=== PATIENT | female | born 1960 | race Caucasian/White ===

== ENCOUNTER → 2016-11-01 | Outpatient (CLI) | payer BC ==
[~2016-11-01] MED LIST: CRF1 PO; GAVISCON; LEVO75TA36 PO; PRLSR20 PO
--- NOTE | 2016-11-01 16:39 | MAMMOGRAPHY REPORT ---
BILATERAL DIGITAL SCREENING MAMMOGRAM TOMOSYNTHESIS WITH CAD: 11/01/2016 CLINICAL HISTORY: Routine screening. Patient has no complaints. TECHNIQUE: Breast tomosynthesis in addition to standard 2D mammography was performed. Current study was also evaluated with a Computer Aided Detection (CAD) system. COMPARISON: Comparison is made to exams dated: 10/18/2015 mammogram, 03/13/2013 mammogram, 05/20/2014 mammogram, 03/05/2012 mammogram, 01/11/2011 mammogram, and 12/27/2009 mammogram - [facility]. BREAST COMPOSITION: There are scattered areas of fibroglandular density in both breasts. FINDINGS: There is an area of questionable architectural distortion seen within the right upper oute r quadrant on the tomosynthesis images only, for which spot compression tomosynthesis views and poss ible breast ultrasound are recommended for further evaluation. The remainder of both breasts are stable compared to prior exams, without suspicious masses, calcifi cations, or areas of architectural distortion noted. Oval circumscribed benign-appearing 13 mm mass seen within the left upper outer quadrant appear stable compared to prior exams including the 2013 exam. IMPRESSION: ACR BI-RADS CATEGORY 0: INCOMPLETE EVALUATION: NEED ADDITIONAL IMAGING EVALUATION Possible architectural distortion in the right upper outer quadrant, for which additional imaging ev aluation is recommended. The patient will be called to schedule an appointment. Approximately 10% of breast cancers are not detected with mammography. A negative mammographic repor t should not delay biopsy if a clinically suggestive mass is present. Toña Soto M.D. ah/:11/01/2016 15:31:49 Dynamometer Repairer: Cici SPEARS(Dorothy)(M), [facility] letter sent: Addl Imaging 0 BI-RADS Code: ACR BI-RADS Category 0: Incomplete Evaluation: Need Additional Imaging Evaluation
== END | disposition home or self-care (01) ==
LOC: C.MAMM 13:53
PROVIDERS: ATTEND Family Medicine
DX: Z12.31 Encounter for screening mammogram for malignant neoplasm of breast (principal)

== ENCOUNTER → 2016-11-07 | Outpatient (CLI) | payer BC ==
--- NOTE | 2016-11-07 15:47 | MAMMOGRAPHY REPORT ---
UNILATERAL RIGHT DIGITAL DIAGNOSTIC MAMMOGRAM TOMOSYNTHESIS AND TARGETED RIGHT ULTRASOUND: 11/07/2016 CLINICAL HISTORY: Callback from screening mammogram for questionable right breast architectural dist ortion. TECHNIQUE: Breast tomosynthesis in addition to standard 2D mammography was performed. Spot david osmany right CC and MLO tomosynthesis images including C views were obtained. COMPARISON: Comparison is made to exams dated: 11/01/2016 mammogram, 10/18/2015 mammogram, 03/13/2013 mammogram, 05/20/2014 mammogram, 03/05/2012 mammogram, and 01/11/2011 mammogram - [facility]. BREAST COMPOSITION: The tissue of the right breast is heterogeneously dense, which may obscure smal l masses. FINDINGS: The previously described possible architectural distortion in the right upper outer quadr ant is equivocal on the tomosynthesis spot compression views. No discrete mammographic mass or calc ifications is noted in this region. Targeted ultrasound was performed of the right upper outer quadrant in the region of the possible ar chitectural distortion. Sonographically normal tissue is seen, without evidence of a mass or other suspicious sonographic abnormality. IMPRESSION: ACR BI-RADS CATEGORY 0: INCOMPLETE EVALUATION: NEED ADDITIONAL IMAGING EVALUATION, TAR GETED ULTRASOUND ACR BI-RADS CATEGORY 0: INCOMPLETE EVALUATION: NEED ADDITIONAL IMAGING EVALUATION Equivocal architectural distortion in the right upper outer quadrant on the additional views, with n o corresponding sonographic abnormality evident. While this could represent normal fibroglandular t issue, it is indeterminate and radial scar and/or malignancy cannot be excluded. Recommend bilatera l breast MRI for further evaluation. The patient has been verbally notified of the results. Approximately 10% of breast cancers are not detected with mammography. A negative mammographic repor t should not delay biopsy if a clinically suggestive mass is present. Toña Soto M.D. /:11/07/2016 14:27:38 Flap Lining Binder: Cici SPEARS(R)(M), [facility] letter sent: Addl Imaging 0 BI-RADS Code: ACR BI-RADS Category 0: Incomplete Evaluation: Need Additional Imaging Evaluation Ul trasound BI-RADS: ACR BI-RADS Category 0: Incomplete Evaluation: Need Additional Imaging Evaluation
== END | disposition home or self-care (01) ==
LOC: C.MAMM 12:53
PROVIDERS: ATTEND Family Medicine
DX: R92.8 Other abnormal and inconclusive findings on diagnostic imaging of breast (principal)

== ENCOUNTER → 2016-11-22 | Outpatient (CLI) | payer BC ==
[~2016-11-22] MED LIST changes: +GADAVIST IV PRN
--- NOTE | 2016-11-26 14:37 | MAMMOGRAPHY REPORT ---
BREAST MRI OF BOTH BREASTS : 11/22/2016 CLINICAL HISTORY: Equivocal architectural distortion seen within the right upper outer quadrant on r ecent diagnostic mammograms, with no sonographic abnormality evident. COMPARISON: Comparison is made to exams dated: 11/01/2016 mammogram, 11/07/2016 mammogram, 11/07/2016 u ltrasound, 10/18/2015 mammogram, 05/20/2014 mammogram, and 03/13/2013 mammogram - [facility]. Technique: The patient was placed prone in a dedicated breast imaging coil. Precontrast axial T1-we ighted, axial T2-weighted fat saturation, and axial T1-weighted fat saturation images were obtained. After the administration of 7 mL of Gadavist IV contrast, sequential T1-weighted fat saturation im ages were obtained. Subtraction images were obtained of the dynamic contrast enhanced sequences, an d 3-D reformations were performed. The [employer] software was used for kinetic analysis. Findings: There is minimal background parenchymal enhancement involving bilateral breasts. There are no suspi cious enhancing masses or other areas of abnormal enhancement seen within either breast. Specifical ly, there is no abnormal enhancement or kinetics in the right upper outer quadrant at the site of th e questionable architectural distortion seen mammographically. Given no corresponding suspicious MR I abnormality, and given the fact that this region appears similar on multiple prior mammograms dati ng back to at least 2010 and likely also 2009, findings are benign and felt to represent normal fibr oglandular tissue. There is no evidence of axillary adenopathy. The chest wall structures are negative. There is a f ocal 14 mm area of enhancement in the right lower lung anteriorly, with a rounded 5 mm hypointense a clem seen centrally (series 501 image 89). While this could represent dependent atelectasis, it is s omewhat masslike. Given that it is not well evaluated on this exam, recommend chest CT for further evaluation. Additionally, there are 2-3 prominent but likely not pathologically enlarged lymph node s in the right superior mediastinum, anterior to the SVC, the largest measuring 6 mm in short axis ( series 501 image 58 and 60). These could also be evaluated on chest CT. Trace dependent bilateral pleural effusions are evident. IMPRESSION: ACR BI-RADS CATEGORY 2: BENIGN 1. No MRI evidence of malignancy in either breast. Specifically, no suspicious enhancement is seen in the right upper outer quadrant at the site of the equivocal architectural distortion seen mammog raphically. Given no suspicious corresponding MRI abnormality and given the fact that this region i s likely similar compared to prior 2-D mammograms dating back to at least 2010, findings are benign and felt to represent the patient's normal fibroglandular tissue pattern. Recommend bilateral scree james mammograms in one year. 2. Incidental focal 14 mm area of enhancement in the right lower lung anteriorly. While this may r epresent dependent atelectasis, a mass is not excluded. Recommend chest CT with contrast for furthe r evaluation. 3. Mildly prominent right superior mediastinal lymph nodes, which could be evaluated at the time of chest CT. Toña Soto M.D. ah/:11/23/2016 16:35:19 Tone Artist Apprentice: extrusion operator, [facility] letter sent: Normal 1/2 BI-RADS Code: ACR BI-RADS Category 2: Benign
== END | disposition home or self-care (01) ==
LOC: C.MRI 10:09
PROVIDERS: ATTEND Family Medicine
DX: R92.8 Other abnormal and inconclusive findings on diagnostic imaging of breast (principal)

== ENCOUNTER → 2017-07-17 | Outpatient (CLI) | payer BC ==
[~2017-07-17] MED LIST changes: -GADAVIST IV PRN
== END | disposition home or self-care (01) ==
LOC: C.PAPS 09:37
PROVIDERS: ATTEND Obstetrics & Gynecology
DX: Z01.419 Encounter for gynecological examination (general) (routine) without abnormal findings (principal)

== ENCOUNTER → 2017-11-04 | Outpatient (CLI) | payer BC ==
--- NOTE | 2017-11-04 15:09 | MAMMOGRAPHY REPORT ---
BILATERAL DIGITAL SCREENING MAMMOGRAM TOMOSYNTHESIS WITH CAD: 11/04/2017 CLINICAL HISTORY: Routine screening. Patient has no complaints. TECHNIQUE: Breast tomosynthesis in addition to standard 2D mammography was performed. Current study was also evaluated with a Computer Aided Detection (CAD) system. COMPARISON: Comparison is made to exams dated: 11/22/2016 breast MRI, 11/07/2016 ultrasound, 11/01/2016 mammogram, 10/18/2015 mammogram, 05/20/2014 mammogram, and 03/13/2013 mammogram - [facility]. BREAST COMPOSITION: The tissue of both breasts is heterogeneously dense, which may obscure small mas ses. FINDINGS: The tissue pattern versus questionable area of architectural distortion in the lateral righ t breast on the cc tomosynthesis images appears stable when comparing to the 11/07/2016 diagnostic to mosynthesis mammograms, and the 11/01/2016 screening tomosynthesis mammogram images. Additionally, t he 2-D pattern appears stable dating back to at least 2010, suggesting benignity. No new suspicious mass, architectural distortion or cluster of microcalcifications is seen bilaterally. IMPRESSION: ACR BI-RADS CATEGORY 1: NEGATIVE Stable bilateral mammograms, without mammographic evidence of malignancy. A 1 year screening mammogra m is recommended. The patient will receive written notification of the results. Approximately 10% of breast cancers are not detected with mammography. A negative mammographic report should not delay biopsy if a clinically suggestive mass is present. Miroslava Huffman M.D. ay/:11/04/2017 14:28:44 Neuroscience Director Na: Karrie SPEARS(Dorothy)(Tara), [facility] letter sent: Normal 1/2 BI-RADS Code: ACR BI-RADS Category 1: Negative
== END | disposition home or self-care (01) ==
LOC: C.MAMM 13:31
PROVIDERS: ATTEND Family Medicine
DX: Z12.31 Encounter for screening mammogram for malignant neoplasm of breast (principal)

== ENCOUNTER → 2018-05-20 | Outpatient (CLI) | payer BC ==
[~2018-05-20] MED LIST changes: +CALC500C70 PO; +CLR10 PO; -CRF1 PO; +FEXO1TAB49 PO; -GAVISCON; +LEVO75CA2 PO; -LEVO75TA36 PO; +MULT-506 PO; -PRLSR20 PO
[2018-05-20 10:10] LABS: BASO % 0.4 %; BASO ABS # 0.02 K/uL (0-0.2); EOS % 1.5 %; EOS ABS # 0.07 K/uL (0-0.5); HEMATOCRIT 40.2 % (37-47); HEMOGLOBIN 13.4 g/dL (12.0-16.0); LYMPH % 32.3 %; LYMPH ABS # 1.51 K/uL (1.2-3.4); MEAN CELL VOLUME 90.7 fL (80-100); MEAN CORPUSCULAR HEMOGLOBIN 30.2 pg (25-34); MEAN CORPUSCULAR HGB CONC 33.3 g/dl (32-36); MONO % 5.3 %; MONO ABS # 0.25 K/uL (0.11-0.59); NEUT % 60.5 %; NEUT ABS # 2.83 K/uL (1.4-6.5); PLATELET COUNT 235 K/uL (130-400); RED CELL DISTRIBUTION WIDTH CV 13.2 % (11.5-14.5); RED CELL DISTRIBUTION WIDTH SD 43.6 fL (36.4-46.3); WHITE BLOOD COUNT 4.68 K/uL (4.8-10.8)
[2018-05-20 10:38] LABS: BLOOD UREA NITROGEN 13 mg/dl (7-18); CALCIUM 8.8 mg/dl (8.5-10.1); CARBON DIOXIDE 28 mmol/L (21-32); CREATININE 0.74 mg/dl (0.60-1.20); GLUCOSE 85 mg/dl (70-99); POTASSIUM 4.2 mmol/L (3.5-5.1); SODIUM 140 mmol/L (136-145)
--- NOTE | 2018-05-20 13:20 | EXERCISE STRESS ECHO ---
*NOTICE TO RECEIVING [employer] AGENCY This information is strictly Confidential and protected under [place] law. [place] law prohibits you from making any further disclosure of this information unless further disclosure is expressly permitted by the written consent of the person to whom it pertains or is authorized by law. A general authorization for the release of medical or other information is not sufficient for this purpose. Hospital accepts no responsibility if the information is made available to any other person, INCLUDING THE PATIENT. Interpretation Summary * Name: SHEILA KULKARNI Study Date: 05/20/2018 10:07 AM BP: 145/79 mmHg * Patient Location: Cardiopulmonary Lab HR: 68 * : 1960 (M/d/yyyy) Gender: Female Height: 62 in * Age: 57 yrs Ethnicity: CA Weight: 150 lb * Ordering Physician: Mario Rosenbaum * Referring Physician: Shaw Guzman * Performed By: Sharon Nash RCS * * Reason For Study: Dyspnea * BSA: 1.7 m2 * -- Conclusions -- * 1. Normal stress echocardiogram at 9 METS and a peak heart rate of 92% predicted maximum. * 2. False positive EKG response. * 3. No exercise-induced chest pain. * 4. Baseline echocardiogram notes normal left ventricular systolic function and evidence of diastolic dysfunction. Procedure Details * ECHOEX, CPT #[id number] * ECHO COLOR FLOW, CPT #[id number] * ECHO DOPPLER, CPT #[id number] Left Ventricle * The left ventricle is normal in size. * There is normal left ventricular wall thickness. * Ejection Fraction = 60-65%. * Resting wall motion: Normal. Stress wall motion: Appropriate increase in Left ventricular systolic function and decrease in cavity size. No stress induced segmental wall motion abnormalities. Right Ventricle * The right ventricle is normal size. * The right ventricular systolic function is normal as assessed by tricuspid annular plane systolic excursion (TAPSE) (normal >1.5 cm). Atria * Borderline left atrial enlargement. * Right atrial size is normal. * No ASD detected; PFO is not assessed. Mitral Valve * The mitral valve anatomy is normal. * There is no mitral valve stenosis. * Significant mitral regurgitation is absent. Tricuspid Valve * The tricuspid valve anatomy is normal. * There is no tricuspid stenosis. * There is mild tricuspid regurgitation. Aortic Valve * The aortic valve is normal in structure and function. * No hemodynamically significant valvular aortic stenosis. * No aortic regurgitation is present. Pulmonic Valve * The pulmonary valve is not well seen, but the Doppler examination is normal without significant regurgitation or stenosis. Great Vessels * The aortic root is not well visualized. * The pulmonary is not well visualized. Pericardium * There is no pericardial effusion. Stress Parameters * Normal baseline electrocardiogram. * There was >2mm ST segment depression in the inferior lead(s). * Rest heart rate was '68' BPM. * Rest blood pressure was '145/79' * Maximum heart rate achieved was 150 bpm. * Maximum heart rate was 92 % of maximum age-predicted heart rate. * Maximum blood pressure was '169/76' * Total exercise time was '7:20' * Maximum exercise MET level achieved was '9.0' METS * Maximum treadmill speed was '3.4' miles per hour. * Maximum treadmill elevation was '14'% grade. * Exercise was terminated due to 'fatigue' * Normal blood pressure response to exercise. Left Ventricular Diastolic Function * Grade I diastolic dysfunction, (abnormal relaxation pattern). MMode 2D Measurements and Calculations IVSd 1.0 cm IVSs 1.3 cm LVIDd 3.8 cm LVIDs 2.4 cm LVPWd 1.0 cm LVPWs 1.3 cm IVS/LVPW 10 FS 38.1 % EDV(Teich) 63.6 ml ESV(Teich) 19.7 ml EF(Teich) 69.0 % EDV(cubed) 56.7 ml ESV(cubed) 13.5 ml EF(cubed) 76.3 % % IVS thick 24.2 % % LVPW thick 28.2 % LV mass(C)d 123.5 grams LV mass(C)dI 73.0 grams/m\S\2 LV mass(C)s 91.2 grams LV mass(C)sI 53.9 grams/m\S\2 SV(Teich) 43.9 ml SI(Teich) 25.9 ml/m\S\2 SV(cubed) 43.3 ml SI(cubed) 25.6 ml/m\S\2 Ao root diam 3.1 cm Ao root area 7.7 cm\S\2 ACS 1.4 cm LA dimension 3.2 cm asc Aorta Diam 2.7 cm LA/Ao 1.0 EDV(MOD-sp4) 71.7 ml ESV(MOD-sp4) 22.0 ml EF(MOD-sp4) 69.3 % EDV(MOD-sp2) 70.6 ml ESV(MOD-sp2) 22.0 ml EF(MOD-sp2) 68.8 % SV(MOD-sp4) 49.7 ml SI(MOD-sp4) 29.4 ml/m\S\2 SV(MOD-sp2) 48.6 ml SI(MOD-sp2) 28.7 ml/m\S\2 Doppler Measurements and Calculations MV E max conrad 69.0 cm/sec MV A max conrad 81.4 cm/sec MV E/A 0.85 MV P1/2t max conrad 78.5 cm/sec MV P1/2t 80.2 msec MVA(P1/2t) 2.7 cm\S\2 MV dec slope 286.6 cm/sec\S\2 MV dec time 0.26 sec Ao V2 max 110.4 cm/sec Ao max PG 4.9 mmHg Ao max PG (full) 0.72 mmHg AI max conrad 427.1 cm/sec AI max PG 73.0 mmHg AI dec slope 264.5 cm/sec\S\2 AI P1/2t 472.9 msec LV V1 max PG 4.2 mmHg LV V1 max 101.9 cm/sec PA V2 max 70.4 cm/sec PA max PG 2.0 mmHg PI max conrad 159.5 cm/sec PI max PG 10.2 mmHg PI dec slope 191.5 cm/sec\S\2 PI P1/2t 244.1 msec TR max conrad 210.6 cm/sec
--- NOTE | 2018-05-21 08:33 | PULMONARY FUNCTION TEST ---
Pre-bronchodilator spirometry is well within normal limits. There was a modest response to bronchodilator as evidenced by improved flow measured at low lung volumes. This may suggest the presence of early reversible airways disease. Lung volumes were essentially within normal limits as was diffusion capacity. Clinical correlation is needed.
--- NOTE | 2018-05-28 08:52 | PULMONARY FUNCTION TEST ---
Pre-bronchodilator spirometry is essentially within normal limits. There was a modest response to bronchodilator as evidenced by improved flow measured at low lung volumes. This may suggest the presence of early reversible airways disease. Lung volumes were essentially within normal limits as was diffusion capacity. Clinical correlation is needed.
== END | disposition home or self-care (01) ==
LOC: C.RC 08:51
PROVIDERS: ATTEND Internal Medicine Pulmonary Disease
DX: Z01.818 Encounter for other preprocedural examination (principal); R91.1 Solitary pulmonary nodule; R59.0 Localized enlarged lymph nodes; R07.89 Other chest pain; R05 Cough

== ENCOUNTER → 2018-05-23 | Day surgery (SDC) | payer BC ==
[2018-05-14 11:33] VITALS: BMI 27.0
[~2018-05-23] VITALS: Ht 158.8 cm; Wt 68.2 kg
[~2018-05-23] MED LIST changes: +ATROPINE SULFATE 0.1 MG/ML 5ML SYR IV PRN; +CLINDAMYCIN PHOS 150 MG/ML 2 ML VIAL ONE; +DEXAMETHASONE SOD INJ 4 MG/ML VIAL ONE; +EpHEDrine SULFATE INJ 50 MG/ML AMP IV PRN; +FENTANYL CITRATE INJ 50 MCG/1 ML 2 ML VIAL IV PRN; +FENTANYL CITRATE INJ 50 MCG/1 ML 2 ML VIAL ONE; +GLYCOPYRROLATE INJ 0.2 MG/ML VIAL ONE; +HYDROmorphone INJ 0.5 MG/0.5 ML SYR IV PRN; +LABETALOL HCL IV 5 MG/ML 20ML IV PRN; +LACTATED RINGER'S 1000ML 1,000 ML IV SCH; +LARYING-O-JET KIT (LTA) ONE; +LIDOCAINE HCL 2% 2 ML VIAL (20MG/ML) ONE; +MEPERIDINE HCL 25 MG/ML CARP IV PRN; +MIDAZOLAM HCL 1 MG/ML 2ML VIAL ONE; +NEOSTIGMINE METHYLSULFATE 5 MG/5 ML SYR ONE; +ONDANSETRON INJ 2 MG/ML 2 ML VIAL IV PRN; +ONDANSETRON INJ 2 MG/ML 2 ML VIAL ONE; +PROPOFOL IV EMULSION 10 MG/ML 20 ML VIAL ONE; +ROCURONIUM BROMIDE 10 MG/ML 5 ML VIAL ONE; +SUCCINYLCHOLINE CHLORIDE 20 MG/ML 10 ML VIAL IV ONE
[2018-05-23 09:19] VITALS: BP 143/71; PULSE 73; TEMP 36.8; O2SAT 97; Ht 158.8 cm; Wt 68.2 kg
--- NOTE | 2018-05-23 09:32 | Discharge Instructions ---
Discharge Instructions Date of Service May 23, 2018. Visit Reason for Visit: Pulmonary Nodule, Mediastinal Adenopathy Discharge Discharge Diagnosis / Problem: Pulmonary Nodule, Mediastinal Adenopathy Discharge Goals Goal(s): Learn about illness Activity Recommendations Activity Limitations: resume your previous activity (in 24 hours) Anesthesia . Post Anesthesia Instructions: If you have had General Anesthesia or IV Sedation: * Do not drive today. * Resume driving when surgeon permits. * Do not make important decisions or sign legal documents today. * Call surgeon for: 1. Temperature elevations greater than 101 degrees F. 2. Uncontrollable pain. 3. Excessive bleeding. 4. Persistent nausea and vomiting. 5. Medication intolerance (nausea, vomiting or rash). * For nausea and vomiting use only clear liquids such as: tea, soda, bouillon until nausea subsides, then gradually increase diet as tolerated. * If you have any concerns or questions, call your surgeon's office. If physician is unavailable and it is an emergency, call 911 or go to the nearest emergency room. . Instructions / Follow-Up Instructions / Follow-Up 1. You may cough up some blood. Call physician if excessive amount noted. 2. Keep your scheduled appointment with Dr. Guzman on June 02, 2018 @ 9:30 am. Diet Recommendations Recommended Home Diet: resume previous diet Pending Studies Studies pending at discharge: no Medical Emergencies . Who to Call and When: Medical Emergencies: If at any time you feel your situation is an emergency, please call 911 immediately. . Non-Emergent Contact Non-Emergency issues call your: Surgeon Call Non-Emergent contact if: you have a fever . . "Provider Documentation" section prepared by Estiven Gordon. .
--- NOTE | 2018-05-23 11:10 | History & Physical Bridge Note ---
H&P Re-Evaluation Bridge Note: I have examined the patient, reviewed the History & Physical and in the interval since the performance of the History & Physical I have noted the following changes of clinical significance: No changes noted
--- NOTE | 2018-05-23 12:11 | [facility] Post Operative Brief Note ---
Immediate Operative Summary Operative Date May 23, 2018. Pre-Operative Diagnosis Right Middle Lobe Lung Nodule Post-Operative Diagnosis Right Middle Lobe Lung Nodule Procedure(s) Performed Endobronchial Ultrasound with Biopsies Surgeon Dr. Von Guzman Warp Bleaching Vat Tender Surgeon(s) Jonah Gordon PA-C Estimated Blood Loss 3mL Findings Consistent with Post-Op Diagnosis Specimens specimens maintained by respiratory & cytology staff Anesthesia Type General
--- NOTE | 2018-05-23 12:53 | DIAGNOSTIC IMAGING REPORT ---
CHEST ONE VIEW PORTABLE HISTORY: Postop. EBUS COMPARISON: Chest 01/07/2011. FINDINGS: Heart is mildly enlarged. There is mild prominence of the interstitial markings. This could be due to the AP portable technique. No new focal lung consolidations to suggest pneumonia. No evidence for pulmonary edema. No pleural effusions. No pneumothorax. Ossified AP window lymph nodes are again noted. IMPRESSION: Mild cardiomegaly and mild interstitial thickening. This could be due to the AP portable technique. Otherwise, no acute process within the chest. Electronically signed by: Victor Hugo Medel M.D. 05/23/2018 12:52 PM Dictated Date/Time: 05/23/2018 12:43 PM
[2018-05-23 13:15] VITALS: BP 133/76; PULSE 59; TEMP 36.4; O2SAT 96
--- NOTE | 2018-05-23 13:19 | Anesthesiology Progress Note ---
Anesthesia Post Op Note Date & Time May 23, 2018 at 13:19 Vital Signs Pain Intensity: 2 Vital Signs Past 12 Hours Date Time Temp Pulse Resp B/P (MAP) Pulse Ox O2 Delivery O2 Flow Rate FiO2 05/23/18 13:05 36.0 58 16 128/77 100 Nasal Cannula 2 05/23/18 12:55 55 17 130/73 100 Nasal Cannula 2 05/23/18 12:45 59 14 133/82 100 Oxymask 10 05/23/18 12:35 69 21 130/80 100 Oxymask 10 05/23/18 12:26 36.0 86 16 122/82 100 Oxymask 10 05/23/18 09:19 36.8 73 18 143/71 (95) 97 Room Air Notes Mental Status: alert / awake / arousable, participated in evaluation Pt Amnestic to Procedure: Yes Nausea / Vomiting: adequately controlled Pain: adequately controlled Airway Patency, RR, SpO2: stable & adequate BP & HR: stable & adequate Hydration State: stable & adequate Anesthetic Complications: no major complications apparent
[2018-05-23 13:45] VITALS: BP 111/73; PULSE 55; O2SAT 96
[2018-05-23 14:15] VITALS: BP 115/66; PULSE 62; TEMP 36.3; O2SAT 96
--- NOTE | 2018-06-04 09:38 | OPERATIVE REPORT ---
DATE OF OPERATION: 05/23/2018 PREOPERATIVE DIAGNOSIS: Right middle lobe mass with enlarged right level 10 lymph node. POSTOPERATIVE DIAGNOSIS: Right middle lobe mass with enlarged right level 10 lymph node. PROCEDURE: Endobronchial ultrasound with biopsy. SURGEON: Shaw Guzman MD CASEWORKER PROTECTIVE SERVICES: Jeffery Hurtado, respiratory therapy. ANESTHESIA: General anesthesia with endotracheal intubation. INDICATION FOR PROCEDURE AND FINDINGS: This is a 57-year-old female with a slowly enlarging mass in the right middle lobe who has also had some mild enlargement of her right level 10 peritracheal node. We had a long talk about this in the office and we have elected to proceed with endobronchial ultrasound with biopsy to ensure there is no metastatic disease. On 05/23/2018, the patient underwent uncomplicated endobronchial ultrasound with biopsy and the rapid onsite evaluation showed that we did have adequate tissue. She tolerated it well. I really did not see any other lymph nodes. Level 7 node was quite tiny as was her level 4 and level 2 on both sides. She really did not have much in the level 11 areas either. At any rate, she tolerated it well. DESCRIPTION OF PROCEDURE: The patient was brought to the operating room and laid in supine position. General anesthesia induced and endotracheal intubation was performed with a single lumen tube. Appropriate antibiotics were given and a timeout was called. An endobronchial ultrasound scope was then placed. I started off on the left side. I really did not see much in the way of any enlargement of any lymph nodes actually. In fact, it was marked by a paucity of lymph nodes. I saw very little on level 10, level 4, or level 2 area on the left. Level 7 node was very small. On the right side, I really did not see much of a level 11. However, the level 10 node was on the left, which was just below the azygos was of adequate size. The level 4 node above the azygos was very difficult to even locate as was the level 2. Going back to level 4, I then biopsied this a total of 9 times. We got adequate lymph nodes tissue on 4 of those. This did not appear to be malignant. She tolerated it well with negligible bleeding. The endobronchial ultrasound scope was then slowly removed. It should be noted we did inflate our balloon to get a maximal contact, so we could visualize the nodes well, however, the other nodes were quite small. She tolerated this quite well. We had really very little in the way of bleeding. I slowly removed the bronchoscope and the case concluded. She tolerated it well. I attest to the content of the Intraoperative Record and any orders documented therein. Any exception s are noted below.
== END | disposition home or self-care (01) ==
LOC: C.ACU 08:54
PROVIDERS: ATTEND Surgery
DX: R91.8 Other nonspecific abnormal finding of lung field (principal); R59.9 Enlarged lymph nodes, unspecified; E03.9 Hypothyroidism, unspecified; K21.9 Gastro-esophageal reflux disease without esophagitis; E78.5 Hyperlipidemia, unspecified; Z79.82 Long term (current) use of aspirin; Z88.6 Allergy status to analgesic agent; Z88.2 Allergy status to sulfonamides; Z79.899 Other long term (current) drug therapy